=== PATIENT | male | born 1955 | race Caucasian/White ===

== ENCOUNTER 2018-02-26 09:46 | Outpatient (CLI) | END 2018-02-26 09:47 | disposition home or self-care (01) ==

== ENCOUNTER 2018-04-30 06:19 | Day surgery (SDC) | payer OTHER ==
[2018-04-30] MEDS ORDERED: ceFAZolin 2 GM/50 ML 2 GM/50 ML BAG IV ONE (06:28)
[2018-04-30] MEDS ORDERED: LACTATED RINGERS 1,000 ML IV ONE ×3 (06:44→09:33)
--- NOTE | 2018-04-30 07:03 | ANESTHESIA ---
Pre-Anesthesia VS, & Labs - Diagnosis R Inguinal Hernia - Procedure R Inguinal hernia repair with mesh Vital Signs: Temp Pulse Resp BP Pulse Ox 36.4 C L 16 129/76 97 04/30/18 06:31 04/30/18 06:31 04/30/18 06:31 04/30/18 06:31 Height 6 ft 2 in Weight (kg) 94.2 kg Home Medications and Allergies Home Medications: Ambulatory Orders Medication Instructions Recorded Confirmed Sertraline [Zoloft] 200 mg PO DAILY 07/05/16 04/30/18 Multivitamin [Multiple Vitamins] 1 each PO DAILY 04/27/18 04/30/18 [place]-3/Dha/Epa/Fish Oil [Fish Oil 1 each PO DAILY 04/27/18 04/30/18 EC 1,000 mg Softgel] Vitamin B Complex/Folic Acid 0.4 mg PO DAILY 04/27/18 04/30/18 [B-Complex Tablet] Allergies/Adverse Reactions: Allergies Allergy/AdvReac Type Severity Reaction Status Date / Time No Known Drug Allergies Allergy Verified 04/30/18 06:46 Anes History & Medical History - Anesthetic History Anesthesia Complications: reports: No previous complications Family history of Anesthesia Complications: Denies Family history of Malignant Hyperthermia: Denies - Medical History Cardiovascular: reports: None Pulmonary: reports: None Gastrointestinal: reports: Colon polyps Urinary: reports: None Musculoskeletal: reports: Osteoarthritis Endocrine/Autoimmune: reports: None Skin: reports: None Smoking Status: Never smoker - Surgical History General: Colonoscopy, EGD Eyes Ears Nose Throat (EENT): Rhinoplasty Orthopedic: Knee replacement Exam General: Alert, Oriented x3, Cooperative Dental: WNL Neck Mobility: Normal Mallampati classification: II Thyromental Distance: greater than 6 cm Respiratory: Lungs clear, Normal breath sounds Cardiovascular: Regular rate Abdomen: Normal bowel sounds Neurological: Normal speech Mental/Cognitive Status: Alert/Oriented X3, Normal for patient Cognitive Status: Within normal limits Plan Anesthesia Type: General, MAC Consent for Procedure(s) Verified and Reviewed: Yes Code Status: Attempt Resuscitation ASA classification: 2-Mild systemic disease Is this case an emergency?: No
[2018-04-30] MEDS ORDERED: BUPIVACAINE 0.5%-EPI 1:200000 PF 30 ML VIAL ONE (07:10)
[2018-04-30] MEDS ORDERED: ceFAZolin 1 GM VIAL ONE (07:11)
[2018-04-30] MEDS ORDERED: LIDOCAINE 1% 50 ML MDV ONE (07:11)
[2018-04-30] MEDS ORDERED: BUPIVACAINE 0.5%-EPI 1:200000 PF 30 ML VIAL SUBQ ONE ×2 (08:02)
[2018-04-30] MEDS ORDERED: LIDOCAINE 1% 50 ML MDV SUBQ ONE ×2 (08:03)
[2018-04-30] MEDS ORDERED: ceFAZolin 1 GM VIAL IR ONE (08:14)
[2018-04-30] MEDS ORDERED: LIDOCAINE-MPF 2% 5 ML VIAL IM ONE (08:30)
[2018-04-30] MEDS ORDERED: PROPOFOL 200 MG/20 ML VIAL IVP ONE (08:30)
[2018-04-30] MEDS ORDERED: KETOROLAC 30 MG/ML VIAL IVP ONE (08:30)
[2018-04-30] MEDS ORDERED: fentaNYL 100 MCG/2 ML VIAL IVP ONE (08:30)
[2018-04-30] MEDS ORDERED: ONDANSETRON 4 MG/2 ML VIAL IVP ONE (08:30)
[2018-04-30] MEDS ORDERED: MIDAZOLAM 2 MG/2 ML VIAL IVP ONE (08:30)
[2018-04-30] MEDS ORDERED: DEXAMETHASONE 4 MG/ML VIAL IVP ONE (08:30)
[2018-04-30 10:49] VITALS: BP 111/65
--- NOTE | 2018-04-30 12:48 | OPERATIVE REPORT ---
DATE OF SERVICE: 04/30/2018 Physician: Alex Gonzalez MD PREOPERATIVE DIAGNOSIS: Symptomatic right inguinal hernia. POSTOPERATIVE DIAGNOSIS: Symptomatic sliding indirect right inguinal hernia. PROCEDURE PERFORMED: Open repair of symptomatic sliding indirect right inguinal hernia with polypropylene mesh. ANESTHESIA: Local plus monitored anesthesia care by Abdulkadir Sevilla CRNA. SURGEON: Alex Gonzalez MD. ESTIMATED BLOOD LOSS: Minimal. COMPLICATIONS: None. DRAINS: None. FINDINGS: A moderate-sized cord lipoma was present within the inguinal canal, and a moderate sized indirect sliding inguinal hernia was present, and what appeared to be the bladder being the sliding component. There was no evidence of direct or femoral hernia. INDICATIONS: Patient is a 62-year-old gentleman with a history of progressively enlarging increasingly painful right groin bulge. Examination revealed a reducible right inguinal hernia. He was advised to undergo repair using a tension-free technique with mesh reconstruction, using an open technique with local anesthesia associated with deep sedation technique. PROCEDURE: After informed consent, the patient was taken to the operating room , where he was sedated and monitored. His preoperative preparation included administration of 2 grams of cefazolin intravenously within an hour of the incision, and application of sequential calf compression boots. His right groin had been clipped and was prepared with iodoform solution, following which a right groin block was instituted using a 50:50 combination of 1% lidocaine plain and 0.5% Marcaine with epinephrine. A total of 45 mL of the mixture was used. The right groin was prepared with ChloraPrep solution and draped in the usual sterile fashion. A transverse incision was made in the skin lines of the right groin, beginning above the pubic tubercle and extending laterally approximately 5 cm. Hemostasis achieved with electrocautery and 2-0 Vicryl ties. Incision carried down through the subcutaneous tissues until the external oblique aponeurosis was identified. It was incised along the lines of its fibers in such a manner to open external ring, exposing the internal ring. The ilioinguinal nerve was small and was divided to avoid entrapment and injury causing neuroma. The spermatic cord was mobilized and encircled with a Srinivas drain. The cord was then dissected, isolating the cord lipoma which was dissected free of surrounding cord structures at the level of the internal ring, where it was ligated with 2-0 Vicryl ties, amputated and discarded. Additional cord skeletonization occurred until the hernia sac was identified. It was seen to be a sliding hernia with probable bladder being the sliding component. The hernia sac was entered and the sliding component reduced, and the peritoneal defect reapproximated after trimming excess hernia sac away. A finger was inserted in the peritoneal cavity prior to peritoneal closure, and a search for direct and femoral hernia was madeand none was identified. After hemostasis was assured and the inguinal floor carefully exposed, a size large Bard medium weight polypropylene mesh, precut and slotted, was soaked in antibiotic solution containing 1 gram of cefazolin per liter, and placed over the inguinal floor, where it was secured in place circumferentially with 3-0 Prolene suture, securing it to the shelving edge of Poupart ligament inferiorly , and to the internal oblique aponeurosis laterally and superiorly, and to the lateral border of the rectus sheath medially. The tails of the mesh wrapped nicely around the cord at the level of the internal ring, where it was secured in place, and care was taken to avoid excessive tightening of the mesh around the cord at this level. After hemostasis was assured, the wound was irrigated with antibiotic solution, following which wound closure was accomplished in layers including continuous 2- 0 Vicryl to reapproximate the external oblique aponeurosis, followed by 3-0 Vicryl for Alanna fascia and 4-0 Monocryl subcuticular skin closure, followed by Dermabond. Procedure terminated, patient transferred out of the operating room in satisfactory condition. Sponge and needle counts correct x2, and no drains were used. cc: Mary Schneider PA-C TD: 04/30/2018 10:05 RACHID
== END 2018-04-30 06:20 | disposition home or self-care (01) ==
LOC: SDS 06:19
PROVIDERS: ATTEND Internal Medicine Gastroenterology
PROC: 0VBF0ZZ Excision of Right Spermatic Cord, Open Approach (ICD-10-PCS; 2018-04-30)
PROC: 0YU60JZ Supplement Left Inguinal Region with Synthetic Substitute, Open Approach (ICD-10-PCS; principal; 2018-04-30 07:30)
DX: K40.90 Unilateral inguinal hernia, without obstruction or gangrene, not specified as recurrent (principal); F10.21 Alcohol dependence, in remission; I10 Essential (primary) hypertension
CPT/HCPCS: 49525; 55520; C1781; J0690; J7120

== ENCOUNTER 2018-06-08 11:20 | Outpatient (CLI) | payer OTHER ==
--- NOTE | 2018-06-08 16:10 | XRAY Report ---
Reason: PAIN IN RIGHT HIP Procedure Date: 06/08/2018 Accession Number: [id number] / [id number] Procedure: XR - Hip w/Pelvis 2-3V RT CPT Code: FULL RESULT: EXAM: RIGHT HIP AND PELVIS RADIOGRAPHY EXAM DATE: 06/08/2018 11:51 AM. HISTORY: Pain in right hip. COMPARISONS: 04/14/2014 12:19 PM. TECHNIQUE:1 view of the pelvis and 1 view of the hip. FINDINGS: Bones: Normal. No fracture or bone lesion. Joints: Pubic symphysis and sacroiliac joints are unremarkable. The bilateral femoral acetabular joints demonstrate mild to moderate joint space narrowing, relatively symmetric. No dislocation. Soft Tissues: Surgical clips may represent vasectomy change. IMPRESSION: Degenerative change with no acute fracture or dislocation. RADIA
== END 2018-06-08 11:21 | disposition home or self-care (01) ==
LOC: DI 11:20
PROVIDERS: ATTEND Internal Medicine
DX: M25.551 Pain in right hip (principal); Z87.81 Personal history of (healed) traumatic fracture

== ENCOUNTER 2023-03-04 12:09 | Outpatient (CLI) | payer MEDICARE, OTHER | END 2023-03-04 23:59 | disposition critical access hospital (66) | LOC: EMS 12:09 | DX: R41.82 Altered mental status, unspecified (principal); R47.81 Slurred speech; R00.1 Bradycardia, unspecified | CPT/HCPCS: A0425; A0429 ==

== ENCOUNTER 2023-03-04 12:42 | Emergency (ER) | payer MEDICARE, OTHER ==
[2023-03-04] MEDS ORDERED: THIAMINE INJ 100 MG, FOLIC ACID INJ 1 MG in SODIUM CHLORIDE 0.9% 1,000 ML IV STA (12:52)
[2023-03-04] MEDS ORDERED: MULTIVITAMIN TABLET PO STA (12:52)
--- NOTE | 2023-03-04 12:54 | ED Physician Documentation ---
PD HPI ALTERED MENTAL STATUS - Stated complaint Stated Complaint: AMS - History obtained from History obtained from: EMS - History of Present Illness Timing - onset: Today Timing - duration: Hours Timing - details: Abrupt onset, Still present Quality / character: Less responsive Associated symptoms: No: Fever, Headache, Stiff neck, Dyspnea, Cough, NVD, Urinary sx, General weakness, Focal weakness, Seizure activity, Syncope Contributing factors: Intoxicated [place] status: Alert and oriented X 3, Ambulatory, Independent Similar symptoms before: Diagnosis (alcohol intoxication) Recently seen: Not recently seen - Additional information Additional information: Kishor Keller is a 67-year-old male who drinks regularly and occultly. He apparently was drinking last night and he slept in a different room that his when his went to wake him up this morning he was sitting in his easy chair and she was unable to arouse him. She called the ambulance they arrived to find the patient aphasic he began to talk to them in route to the hospital. He had a negative FAST exam with the exception of not speaking. He does not have obvious signs of trauma. Review of Systems Unable to obtain: Intoxicated PD PAST MEDICAL HISTORY - Past Medical History Cardiovascular: None Respiratory: None Endocrine/Autoimmune: None GI: Colon polyps : None HEENT: None Psych: Depression Musculoskeletal: Osteoarthritis Derm: None - Past Surgical History Past Surgical History: Yes General: Colonoscopy, EGD Ortho: Knee replacement HEENT: Rhinoplasty - Present Medications Home Medications: Ambulatory Orders Medication Instructions Recorded Confirmed Sertraline [Zoloft] 200 mg PO DAILY 07/05/16 04/30/18 Multivitamin [Multiple Vitamins] 1 each PO DAILY 04/27/18 04/30/18 [place]-3/Dha/Epa/Fish Oil [Fish Oil 1 each PO DAILY 04/27/18 04/30/18 EC 1,000 mg Softgel] Vitamin B Complex/Folic Acid 0.4 mg PO DAILY 04/27/18 04/30/18 [B-Complex Tablet] - Allergies Allergies/Adverse Reactions: Allergies Allergy/AdvReac Type Severity Reaction Status Date / Time No Known Drug Allergies Allergy Verified 03/04/23 12:52 - Social History Does the pt smoke?: No Smoking Status: Never smoker Does the pt drink ETOH?: Yes Does the pt have substance abuse?: No - Immunizations Immunizations are current?: Yes - POLST Patient has POLST: No PD ED PE NORMAL - Vitals Vital signs reviewed: Yes (Hypertensive mild diastolic only) - General General: No acute distress, Well developed/nourished - HEENT HEENT: Atraumatic, PERRL, EOMI - Neck Neck: Supple, no meningeal sign, No bony TTP - Cardiac Cardiac: RRR, No murmur - Respiratory Respiratory: No respiratory distress, Clear bilaterally - Abdomen Abdomen: Soft, Non tender - Back Back: No CVA TTP, No spinal TTP - Derm Derm: Normal color, Warm and dry, No rash - Extremities Extremities: No deformity, No edema - Neuro Neuro: human resources receptionist 2-12 intact, No motor deficit, No sensory deficit, Normal speech Eye Opening: Spontaneous Motor: Obeys Commands Verbal: Confused GCS Score: 14 - Psych Psych: Normal mood, Normal affect Results - Vitals Vitals: Vital Signs - 24 hr 03/04/23 03/04/23 03/04/23 12:52 12:57 13:27 Temperature 36.6 C 36.6 C Heart Rate 58 L 58 L 57 L Respiratory 14 14 14 Rate Blood Pressure 108/95 H 108/95 H 124/68 O2 Saturation 100 100 98 03/04/23 03/04/23 03/04/23 13:30 14:00 14:30 Temperature 36.5 C Heart Rate 60 55 L 58 L Respiratory 14 14 14 Rate Blood Pressure 124/80 120/62 122/64 O2 Saturation 98 98 100 Oxygen O2 Source Room air - Labs Labs: Laboratory Tests 03/04/23 03/04/23 03/04/23 13:18 13:28 13:28 WBC RBC Hgb Hct MCV MCH MCHC RDW Plt Count MPV Neut # (Auto) Lymph # (Auto) [place] # (Auto) Eos # (Auto) Baso # (Auto) Absolute Nucleated RBC Nucleated RBC % Sodium Potassium Chloride Carbon Dioxide Anion Gap BUN Creatinine Estimated GFR (MDRD) Glucose Calcium Total Bilirubin AST ALT Alkaline Phosphatase Total Protein Albumin Globulin Albumin/Globulin Ratio Lipase TSH 0.99 Urine HCG, Qual NEGATIVE Salicylates < 6.0 Acetaminophen < 10 L Ethyl Alcohol 437.8 03/04/23 03/04/23 13:28 13:28 WBC 9.7 RBC 4.99 Hgb 15.0 Hct 46.4 MCV 93.0 MCH 30.1 MCHC 32.3 RDW 13.2 Plt Count 269 MPV 9.4 Neut # (Auto) 5.3 Lymph # (Auto) 3.6 H [place] # (Auto) 0.5 Eos # (Auto) 0.2 Baso # (Auto) 0.1 Absolute Nucleated RBC 0.00 Nucleated RBC % 0.0 Sodium 142 Potassium 3.7 Chloride 106 Carbon Dioxide 26 Anion Gap 10.0 BUN 21 H Creatinine 1.0 Estimated GFR (MDRD) 75 L Glucose 97 Calcium 8.8 Total Bilirubin 0.4 AST 31 ALT 25 Alkaline Phosphatase 73 Total Protein 7.3 Albumin 4.3 Globulin 3.0 Albumin/Globulin Ratio 1.4 Lipase 37 TSH Urine HCG, Qual Salicylates Acetaminophen Ethyl Alcohol PD Medical Decision Making - ED course Complexity details: reviewed results, re-evaluated patient, considered differential, d/w patient Reviewed Lab Results: We reviewed a complete blood count showing a normal white blood cell count normal hemoglobin hematocrit and platelets we reviewed chemistries showing normal electrolytes normal kidney and liver function normal thyroid function and toxicology was positive for an ethyl alcohol of 437.8. To be mentioned and hCG was inadvertently ordered on this patient. It has no bearing to the patient's case and it was negative ED course: 67-year-old Kishor Keller presents to the emergency department after his was unable to arouse him this morning. He is found to be intoxicated with a blood alcohol over 400 at 11:00 in the morning and he was able to metabolize and converse normally requested to go home. Departure - Departure Disposition: 01 Home, Self Care Clinical Impression: Alcohol intoxication Qualifiers: Complication of substance-induced condition: uncomplicated Qualified Code(s): F10.920 - Alcohol use, unspecified with intoxication, uncomplicated Condition: Stable Instructions: ED Alcohol Intoxication Follow-Up: Adam Cobian MD [Credentialed Staff Provider] - Comments: Kishor, it looks like you drank too much. Discharge Date/Time: 03/04/23 16:24
[2023-03-04 13:35] LABS: HCG UR QUAL NEGATIVE
[2023-03-04 13:47] LABS: ACETAMINOPHEN < 10 ug/mL (10-30); ETOH - ETHANOL 437.8 mg/dL; SALICYLATE < 6.0 mg/dL
--- NOTE | 2023-03-04 14:10 | CT Report ---
PROCEDURE: HEAD WO INDICATIONS: altered loc TECHNIQUE: Noncontrast 4.5 mm thick angled axial sections acquired from the foramen magnum to the vertex. For r adiation dose reduction, the following was used: automated exposure control, adjustment of mA and/or kV according to patient size. COMPARISON: None. FINDINGS: Image quality: Excellent. CSF spaces: Basal cisterns are patent. No extra-axial fluid collections. Ventricles are normal in size and shape. Brain: No midline shift. No intracranial masses or hemorrhage. [place]-white matter interface is norm al. Skull and face: Calvarium and visualized facial bones are intact, without suspicious lesions. Sinuses: Visualized sinuses and mastoids are clear. IMPRESSION: No acute intracranial abnormality. Reviewed by: Ilan Short on 03/04/2023 1:09 PM [facility]ULE[facility] Approved by: Ilan Short on 03/04/2023 1:09 PM ZULEMA Station ID: [id number]
[2023-03-04 14:22] LABS: BASOPHILS # (AUTO) 0.1 10^3/uL (0.0-0.1); BASOPHILS % (AUTO) 0.8 %; EOSINOPHILS # (AUTO) 0.2 10^3/uL (0.0-0.7); HCT - HEMATOCRIT 46.4 % (42.0-52.0); LYMPHOCYTES # (AUTO) 3.6 10^3/uL (1.5-3.5); MEAN CORPUSCULAR HEMOGLOBIN 30.1 pg (27.0-31.0); MEAN CORPUSCULAR HGB CONC 32.3 g/dL (32.0-36.0); MEAN PLATELET VOLUME 9.4 fL (7.4-11.4); MONOCYTES # (AUTO) 0.5 10^3/uL (0.0-1.0); MONOCYTES % (AUTO) 4.7 %; NEUTROPHILS # (AUTO) 5.3 10^3/uL (1.5-6.6); NEUTROPHILS % (AUTO) 55.2 %; PLT - PLATELET COUNT 269 10^3/uL (130-450); RED BLOOD COUNT 4.99 10^6/uL (4.70-6.10); RED CELL DISTRIBUTION WIDTH 13.2 % (12.0-15.0); WHITE BLOOD COUNT 9.7 x10^3/uL (4.8-10.8)
[2023-03-04 14:31] LABS: ALBUMIN 4.3 g/dL (3.2-5.5); ALBUMIN/GLOBULIN RATIO 1.4 (1.0-2.2); BILIRUBIN,TOTAL 0.4 mg/dL (0.2-1.0); CALCIUM 8.8 mg/dL (8.5-10.3); POTASSIUM 3.7 mmol/L (3.5-5.0); TOTAL PROTEIN 7.3 g/dL (6.7-8.2)
[2023-03-04 15:03] VITALS: BP 122/64
== END 2023-03-04 16:24 | disposition home or self-care (01) ==
LOC: EDUNIT# → ED 12:42
DX: F10.120 Alcohol abuse with intoxication, uncomplicated (principal); Y90.8 Blood alcohol level of 240 mg/100 ml or more; Z79.899 Other long term (current) drug therapy
CPT/HCPCS: 36415; 70450; 80053; 80307; 81025; 83690; 84443; 85025; 96365; 96366; 99283; 99284; A9270; G0480; J3411; 80320; 80329